=== PATIENT | female | born 1980 | race Caucasian/White ===

== ENCOUNTER 2023-02-05 13:37 | Outpatient (CLI) | payer BC | END 2023-02-05 13:38 | disposition home or self-care (01) | LOC: CSHMAMMO 13:37 | PROVIDERS: ATTEND Obstetrics & Gynecology | DX: N63.11 Unspecified lump in the right breast, upper outer quadrant (principal); N64.4 Mastodynia | CPT/HCPCS: 77066; G0279 ==